=== PATIENT | female | born 1970 | race Caucasian/White ===

== ENCOUNTER 2018-10-27 00:16 | Emergency (ER) | payer OTHER ==
[~2018-10-27] VITALS: Ht 170.2 cm; Wt 57.6 kg
[2018-10-27] MEDS ORDERED: MIRALAX17 GM PO (06:08)
== END 2018-10-27 06:41 | disposition home or self-care (01) ==
LOC: ER 00:16
DX: K59.09 Other constipation (principal); R10.84 Generalized abdominal pain